=== PATIENT | female | born 2000 | race Caucasian/White ===

== ENCOUNTER 2023-10-21 22:33 | Emergency (ER) | payer OTHER, SELFPAY ==
[2023-10-21 22:35] VITALS: BP 130/85; PULSE 97; RESP 14; TEMP 36.7; O2SAT 98
--- NOTE | 2023-10-21 23:10 | ECG_ITS ---
[facility] Test Date: 2023-10-22 Pat Name: Rosendo Robbins Department: Room: Gender: Female Non Morse Intercept Technician: : 2000 Requested By: Sampson Cagle Order Number: [id number] Adrian MD: Torsten Monterroso M.D. Measurements Intervals [place] Rate: 87 P: 64 VA: 152 QRS: 64 QRSD: 97 T: 40 QT: 344 QTc: 415 Interpretive Statements SINUS RHYTHM POSSIBLE RIGHT VENTRICULAR CONDUCTION DELAY [RSR (QR) IN V1/V2] No previous ECG available for comparison Electronically Signed On 10-22-2023 17:00:03 CDT by Torsten Monterroso M.D. [email or web address]
--- NOTE | 2023-10-21 23:10 | XRR_ITS ---
PROCEDURE INFORMATION: Exam: XR Chest Exam date and time: 10/21/2023 11:18 PM Age: 23 years old Clinical indication: Dyspnea; Patient HX: Patient says she didn't injure her wrist but says she feels like its the veins that hurt ; Additional info: SOB TECHNIQUE: Imaging protocol: Radiologic exam of the chest. Views: 2 views. COMPARISON: CR XR cervical spine 4-5V [id number] 12/16/2017 4:13 PM FINDINGS: Lungs: Unremarkable. No consolidation. Pleural spaces: Unremarkable. No pleural effusion. No pneumothorax. Heart/Mediastinum: Unremarkable. No cardiomegaly. Bones/joints: Unremarkable. XR/XR chest 2V* [id number] IMPRESSION: No acute findings.
--- NOTE | 2023-10-21 23:10 | XRR_ITS ---
PROCEDURE INFORMATION: Exam: XR Left Wrist Exam date and time: 10/21/2023 11:15 PM Age: 23 years old Clinical indication: Pain; Left; Patient HX: Patient says she didn't injure her wrist but says she feels like its the veins that hurt ; Additional info: Left wrist pain TECHNIQUE: Imaging protocol: Radiologic exam of the left wrist. Views: 3 or more views. COMPARISON: No relevant prior studies available. FINDINGS: Bones/joints: Normal. Soft tissues: Normal. XR/XR wrist LT min 3V* [id number] IMPRESSION: No acute findings.
--- NOTE | 2023-10-21 23:19 | ED_ITS ---
Documented by User: JULIA Damico 10/22/23 00:20 HPI - Extremity Problem 2 General: Chief complaint: Extremity Problem,Nontraumatic Stated complaint: left arm pain Time Seen by Provider: 10/21/23 22:37 Source: patient Mode of arrival: ambulatory Limitations: no limitations History of Present Illness: Patient is a 23-year-old female who presents to the emergency department complaining of left wrist pain onset tonight. Patient also complaining of some shortness of breath over the past 2 days, and parent in the room states that her heart rate has been running high. Patient has had the pain in her left wrist and arm before, as sometimes it will start randomly and be followed by some purple discoloration in her distal left hand. 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 She states she has a history of anxiety, but has never taken any medications. She is concerned that she had a heart attack due to her family history of atrial fibrillation, and states she started to panic over this. Patient denies any recent trauma to her left upper extremity. She states she had a history of central sleep apnea when she was little and underwent several MRIs, but never had this followed up. Patient denies any chest pain, fevers, or any other symptoms at this time. Associated symptoms: Deny chest pain, fever(s) or rash Review of Systems 2 General: Reports: 10 or more systems reviewed and unremarkable except in HPI and below Const: Denies: fever(s), chills or fatigue Eyes: Denies: change in vision ENMT: Denies: throat pain, ear or mastoid pain or nasal discharge Card: Reports: palpitations; Denies: chest pain, swelling of feet/ankles or lightheadedness Resp: Reports: dyspnea; Denies: productive cough or wheezing GI: Denies: abdominal pain, nausea, vomiting, diarrhea or constipation : Denies: flank pain, difficulty voiding, dysuria or urinary frequency Musc: Reports: joint pain (Left wrist); Denies: neck pain, back pain, joint swelling or joint redness Skin/Breast: Reports: changes in skin color (Left hand); Denies: rash Neuro: Denies: headache(s), numbness in extremities or weakness in extremities Psych: Reports: anxiety Physical Exam 2 Const: COMMON NORMALS: no acute distress and no limitations GENERAL APPEARANCE: cooperative, well developed and anxious O RIENTATION/CONSCIOUSNESS: Yes awake, Yes oriented to person, Yes oriented to place and Yes oriented to time HENMT: COMMON NORMALS: normocephalic, atraumatic and hearing grossly normal bilaterally HEAD & SCALP: normocephalic and atraumatic Eye: COMMON NORMALS: Equal, round and reactive pupils present, EOMs intact bilaterally and conjunctivae normal CONJUNCTIVA: Yes conjunctivae normal P UPIL: Yes Equal, round and reactive pupils present Neck/C-Spine: COMMON NORMALS: full ROM, supple and no JVD Resp: COMMON NORMALS: normal respiratory effort, No retractions, No use of accessory muscles and clear to auscultation bilaterally AUSCULTATION: clear to auscultation bilaterally Cardio: COMMON NORMALS: no JVD, regular rate, regular rhythm, No clicks present (Cardio), No murmurs present (Cardio) and No rub (Cardio) RATE: r egular rate RHYTHM: regular rhythm Extremity: COMMON NORMALS: normal to inspection, full ROM, capillary refill normal, no joint enlargement and no clubbing, cyanosis or edema LEFT UPPER EXTREMITY: Yes wrist Left wrist: Yes inspection (Normal to inspection), Yes palpation (Nontender to palpation), Yes ROM (Full painless range of motion), Yes neurovascular exam (Intact) and Yes other (Skin color normal) Neuro: COMMON NORMALS: CN's II-XII intact bilaterally, moves all extremities, no focal motor deficits and no sensory deficits noted SENSORIUM/ORIENTATION: Yes oriented to person, Yes oriented to place and Yes oriented to time Psych: COMMON NORMALS: mental status grossly normal and Normal thought process present MOOD & AFFECT: Yes tearful THOUGHT PROCESS: Normal thought process present Skin: COMMON NORMALS: no rashes or lesions noted GENERAL SKIN EXAM: no rashes or lesions noted Course 2 Vital Signs: Vital signs: Vital Signs Temperature 98.0 F 10/22/23 00:19 Pulse Rate 97 10/22/23 00:19 Respiratory Rate 14 10/22/23 00:19 Blood Pressure 130/85 10/22/23 00:19 Pulse Oximetry 98 10/22/23 00:19 Oxygen Delivery Me thod Room Air 10/21/23 22:35 MDM - Extremity (Nontraumatic) Medical Decision Making This patient was seen and evaluated in the emergency department today for left wrist pain and shortness of breath. Patient and parents endorse the fact that it may be attributed to some anxiety, however patient has been concerned over family history of cardiac issues. Patient's vitals on arrival normal. On exam, patient is tearful and anxious appearing, with unremarkable wrist examination. Heart and lungs normal to auscultation. Special tests for carpal tunnel also negative. No injuries or trauma noted. I ordered a D-dimer to assess patient's concern of breathing difficulties as well as an elevated heart rate, which was negative. Chest x-ray obtained which also did not display any acute cardiopulmonary processes. CBC and CMP normal. EKG showed normal sinus rhythm with normal rate. Due to negative workup, and patient's clinical appearance, I believe the patient would benefit from following up with her primary care provider to discuss potential pharmacology for anxiety. I also informed the patient if she continues to have wrist issues, she can also follow-up for any further imaging. Patient and parents both agree with this plan and patient will be discharged home. Return precautions given. Lab Data 10/21/23 23:30 10/21/23 23:30 Radiology Impressions Chest X-Ray 10/21/23 23:10 IMPRESSION: No acute findings. Wrist X-Ray 10/21/23 23:10 IMPRESSION: No acute findings. Laboratory Results WBC 9.34 10^3/uL (3.29-11.43) 10/21/23 23: RBC 4.55 10^6/uL (3.85-5.65) 10/21/23: Hgb 12.50 g/dL (11.27-16.99) 10/21/23 23: Hct 38.3 % (36-47) 10/21/23 23:30 MCV 84.2 fl (85-98) L 10/21/23 23: MCH 27.5 pg (27-33) 10/21/23: MCHC 32.6 g/dL (30-55) 10/21/23 23: RDW 13.2 % (12.1-15.1) 10/21/23 23: Plt Count 358 10^3/cmm (157-399) 10/21/23 23: MPV 8.4 fL (7.4-10.4) 10/21/23 23:30 Neut % (Auto) 53.3 % 10/21/23 23:30 Lymph % (Auto) 35.5 % 10/21/23 23:30 [place] % (Auto) 9.4 % 10/21/23 23:30 Eos % (Auto) 1.2 % 10/21/23 23:30 Baso % (Auto) 0.5 % 10/21/23 23:30 Neut # (Auto) 4.97 10^3/uL (1.8-7.7) 10/21/23 23:30 Lymph # (Auto) 3.3 10^3/uL (0.8-4.8) 10/21/23 23:30 [place] # (Auto) 0.9 10^3/uL (0.2-0.9) 10/21/23 23:30 Eos # (Auto) 0.1 10^3/uL (0.0-0.8) 10/21/23 23: Baso # (Auto) 0.1 10^3/uL (0.0-0.1) 10/21/23 23:30 Nucleated RBC % (auto) 0 % 10/21/23 23: Nucleated RBCs # 0.0 /100WBC 10/21/23 23:30 D-Dimer <= 0.27 ug/mLFEU (0-0.59) 10/21/23 23:30 Sodium 138 mmol/L (136-145) 10/21/23 23:30 Potassium 3.7 mmol/L (3.5-5.1) 10/21/23 23: Chloride 103 mmol/L (98-107) 10/21/23 23:30 Carbon Dioxide 25 mmol/L (22-29) 10/21/23 23:30 Anion Gap 13.7 (5-19) 10/21/23 23:30 BUN 15 mg/dL (6-20) 10/21/23 23:30 Creatinine 0.7 mg/dL (0.5-0.9) 10/21/23 23:30 GFR Calculation 105.6 mL/min (90-130) 10/21/23 23:30 Glucose 78 mg/dL (65-115) 10/21/23 23:30 Calculated Osmolality 286 mOsm/kg (285-295) 10/21/23 23:30 Calcium 9.3 mg/dL (8.5-10.5) 10/21/23 23:30 Total Bilirubin 0.2 mg/dL (0.15-1.2) 10/21/23 23:30 AST 17 U/L (0-32) 10/21/23 23:30 ALT 17 U/L (0-33) 10/21/23 23:30 Alkaline Phosphatase 77 U/L (35-105) 10/21/23 23:30 Total Protein 7.7 g/dL (6.6-8.7) 10/21/23 23:30 Albumin 4.2 g/dL (3.5-5.2) 10/21/23 23:30 Globulin 3.5 g/dL (1.3-4.6) 10/21/23 23:30 All radiology interpretation(s) finalized by discharge Discharge Plan Discharge Patient Disposition: Home Clinical Impression: Anxiety Muscle strain of left wrist Qualifiers: Encounter type: initial encounter Qualified Code(s): S66.912A - Strain of unspecified muscle, fascia and tendon at wrist and hand level, left hand, initial encounter Condition: Stable Prescriptions: No Action amoxicillin-pot clavulanate 875-125 mg tablet 1 tab PO BID 7 Days Qty: 14 0RF Discharge Orders: Discharge ED (Routine); Ordered 10/22/23 Ordered By: Sampson Tse Referrals: Cj Caba MD [Primary Care Provider] - Discharge Diet: Usual diet Discharge Activity: Resume usual activity Patient Instructions: Wrist Sprain (ED) Activity Restrictions/Additional Instructions: Follow-up with your primary care provider as discussed. Return with any new or concerning symptoms. Coding Level of Care Code ED Prosthetic Technician for Chg Fwd Documented by User: Ariel Juarez DO 10/22/23 06:04 HPI - Extremity Problem 2 General: Chief complaint: Extremity Problem,Nontraumatic Stated complaint: left arm pain Time Seen by Provider: 10/21/23 22:37 Course 2 Vital Signs: Vital signs: Vital Signs Temperature 98.0 F 10/22/23 00:19 Pulse Rate 97 10/22/23 00:19 Respiratory Rate 14 10/22/23 00:19 Blood Pressure 130/85 10/22/23 00:19 Pulse Oximetry 98 10/22/23 00:19 Oxygen Delivery Me thod Room Air 10/21/23 22:35 MDM - Extremity (Nontraumatic) Medical Decision Making This patient was seen and evaluated in the emergency department today for left wrist pain and shortness of breath. Patient and parents endorse the fact that it may be attributed to some anxiety, however patient has been concerned over family history of cardiac issues. Patient's vitals on arrival normal. On exam, patient is tearful and anxious appearing, with unremarkable wrist examination. Heart and lungs normal to auscultation. Special tests for carpal tunnel also negative. No injuries or trauma noted. I ordered a D-dimer to assess patient's concern of breathing difficulties as well as an elevated heart rate, which was negative. Chest x-ray obtained which also did not display any acute cardiopulmonary processes. CBC and CMP normal. EKG showed normal sinus rhythm with normal rate. Due to negative workup, and patient's clinical appearance, I believe the patient would benefit from following up with her primary care provider to discuss potential pharmacology for anxiety. I also informed the patient if she continues to have wrist issues, she can also follow-up for any further imaging. Patient and parents both agree with this plan and patient will be discharged home. Return precautions given. Chart reviewed Lab Data 10/21/23 23:30 10/21/23 23:30 Radiology Impressions Chest X-Ray 10/21/23 23:10 IMPRESSION: No acute findings. Wrist X-Ray 10/21/23 23:10 IMPRESSION: No acute findings. Laboratory Results WBC 9.34 10^3/uL (3.29-11.43) 10/21/23 23:30 RBC 4.55 10^6/uL (3.85-5.65) 10/21/23 23:30 Hgb 12.50 g/dL (11.27-16.99) 10/21/23 23:30 Hct 38.3 % (36-47) 10/21/23 23:30 MCV 84.2 fl (85-98) L 10/21/23 23: MCH 27.5 pg (27-33) 10/21/23 23: MCHC 32.6 g/dL (30-55) 10/21/23: RDW 13.2 % (12.1-15.1) 10/21/23: Plt Count 358 10^3/cmm (157-399) 10/21/23: MPV 8.4 fL (7.4-10.4) 10/21/23 23: Neut % (Auto) 53.3 % 10/21/23 23: Lymph % (Auto) 35.5 % 10/21/23 23: [place] % (Auto) 9.4 % 10/21/23: Eos % (Auto) 1.2 % 10/21/23: Baso % (Auto) 0.5 % 10/21/23: Neut # (Auto) 4.97 10^3/uL (1.8-7.7) 10/21/23: Lymph # (Auto) 3.3 10^3/uL (0.8-4.8) 10/21/23: [place] # (Auto) 0.9 10^3/uL (0.2-0.9) 10/21/23: Eos # (Auto) 0.1 10^3/uL (0.0-0.8) 10/21/23: Baso # (Auto) 0.1 10^3/uL (0.0-0.1) 10/21/23: Nucleated RBC % (auto) 0 % 10/21/23: Nucleated RBCs # 0.0 /100WBC 10/21/23: D-Dimer <= 0.27 ug/mLFEU (0-0.59) 10/21/23 23: Sodium 138 mmol/L (136-145) 10/21/23 23: Potassium 3.7 mmol/L (3.5-5.1) 10/21/23: Chloride 103 mmol/L (98-107) 10/21/23: Carbon Dioxide 25 mmol/L (22-29) 03/19/24 23:30 Anion Gap 13.7 (5-19) 10/21/23 23:30 BUN 15 mg/dL (6-20) 10/21/23 23:30 Creatinine 0.7 mg/dL (0.5-0.9) 10/21/23 23:30 GFR Calculation 105.6 mL/min (90-130) 10/21/23 23:30 Glucose 78 mg/dL (65-115) 10/21/23 23:30 Calculated Osmolality 286 mOsm/kg (285-295) 10/21/23 23:30 Calcium 9.3 mg/dL (8.5-10.5) 10/21/23 23:30 Total Bilirubin 0.2 mg/dL (0.15-1.2) 10/21/23 23:30 AST 17 U/L (0-32) 10/21/23 23:30 ALT 17 U/L (0-33) 10/21/23 23:30 Alkaline Phosphatase 77 U/L (35-105) 10/21/23 23:30 Total Protein 7.7 g/dL (6.6-8.7) 10/21/23 23:30 Albumin 4.2 g/dL (3.5-5.2) 10/21/23 23:30 Globulin 3.5 g/dL (1.3-4.6) 10/21/23 23:30 Discharge Plan Discharge Patient Disposition: Home Clinical Impression: Anxiety Muscle strain of left wrist Qualifiers: Encounter type: initial encounter Qualified Code(s): S66.912A - Strain of unspecified muscle, fascia and tendon at wrist and hand level, left hand, initial encounter Condition: Stable Prescriptions: No Action amoxicillin-pot clavulanate 875-125 mg tablet 1 tab PO BID 7 Days Qty: 14 0RF Discharge Orders: Discharge ED (Routine); Ordered 10/22/23 Ordered By: Sampson Tse Referrals: Cj Caba MD [Primary Care Provider] - Discharge Diet: Usual diet Discharge Activity: Resume usual activity Patient Instructions: Wrist Sprain (ED) Activity Restrictions/Additional Instructions: Follow-up with your primary care provider as discussed. Return with any new or concerning symptoms. Coding Level of Care Code ED Prosthetic Technician for Edu Keyes
[2023-10-21 23:36] LABS: Basophils # 0.1 10^3/uL (0.0-0.1); Basophils % 0.5 %; Eosinophils # 0.1 10^3/uL (0.0-0.8); Eosinophils % 1.2 %; Hematocrit 38.3 % (36-47); Lymphocytes # 3.3 10^3/uL (0.8-4.8); Lymphocytes % 35.5 %; Mean Corpuscular HGB Conc 32.6 g/dL (30-55); Mean Corpuscular Hemoglobin 27.5 pg (27-33); Mean Corpuscular Volume 84.2 fl (85-98); Mean Platelet Volume 8.4 fL (7.4-10.4); Monocytes # 0.9 10^3/uL (0.2-0.9); Monocytes % 9.4 %; Neutrophils # 4.97 10^3/uL (1.8-7.7); Neutrophils % 53.3 %; Nucleated Red Blood Cells % 0 %; Platelet Count 358 10^3/cmm (157-399); Red Blood Count 4.55 10^6/uL (3.85-5.65); Red Cell Distribution Width 13.2 % (12.1-15.1); White Blood Count 9.34 10^3/uL (3.29-11.43)
[2023-10-21 23:51] LABS: D Dimer <= 0.27 ug/mLFEU (0-0.59)
[2023-10-21 23:53] LABS: Alanine Aminotransferase 17 U/L (0-33); Albumin Level 4.2 g/dL (3.5-5.2); Alkaline Phosphatase 77 U/L (35-105); Anion Gap 13.7 (5-19); Aspartate Amino Transferase 17 U/L (0-32); Blood Urea Nitrogen 15 mg/dL (6-20); Calcium 9.3 mg/dL (8.5-10.5); Carbon Dioxide 25 mmol/L (22-29); Chloride 103 mmol/L (98-107); Creatinine Clr Calc Pharmacy 111.3075; Globulin 3.5 g/dL (1.3-4.6); Glomerular Filtration Rate 105.6 mL/min (90-130); Glucose 78 mg/dL (65-115); Osmolality Calculated 286 mOsm/kg (285-295); Potassium 3.7 mmol/L (3.5-5.1); Sodium 138 mmol/L (136-145); Total Bilirubin 0.2 mg/dL (0.15-1.2); Total Protein 7.7 g/dL (6.6-8.7)
[2023-10-22 00:19] VITALS: BP 130/85; PULSE 97; RESP 14; TEMP 36.7; O2SAT 98
== END 2023-10-22 00:20 | disposition home or self-care (01) ==
PROVIDERS: Emergency Provider Physician Assistant; Family Provider Family Medicine; PCP Family Medicine
DX: F41.9 Anxiety disorder, unspecified (principal); S66.912A Strain of unspecified muscle, fascia and tendon at wrist and hand level, left hand, initial encounter; X58.XXXA Exposure to other specified factors, initial encounter
CPT/HCPCS: 36415; 71046; 73110; 80053; 85025; 85378; 93005; 99285

== ENCOUNTER → 2024-05-17 15:35 | Outpatient (BNVA) | payer OTHER, SELFPAY | PROVIDERS: Family Provider Family Medicine; PCP Family Medicine | DX: J02.9 Acute pharyngitis, unspecified (principal) | CPT/HCPCS: 87880 ==

== ENCOUNTER → 2024-08-14 10:14 | Outpatient (BNVA) | payer OTHER, SELFPAY | PROVIDERS: Family Provider Family Medicine; PCP Family Medicine | DX: R05.9 Cough, unspecified (principal); R11.0 Nausea; K52.9 Noninfective gastroenteritis and colitis, unspecified | CPT/HCPCS: 87400; 87426 ==

== ENCOUNTER 2025-01-13 10:20 | Emergency (ER) | payer OTHER, SELFPAY ==
[2025-01-13 10:30] VITALS: BP 121/75; PULSE 115; RESP 18; TEMP 37.7; O2SAT 99; BMI 25.6
--- NOTE | 2025-01-13 11:16 | W.ED.NECK ---
HPI - Neck Pain/Injury General: Chief Complaint: Neck Pain/Injury Stated Complaint: head and neck injury Time Seen by Provider: 01/13/25 11:08 History of Present Illness: 24-year-old female who presents to the emergency room with neck pain. She says this started after she was doing a dance move. She is a dancer or choreographer. Said she has had worsening neck pain. Starts at the base of her skull and goes down her neck and into her shoulders. She also thinks she may have been having fevers. Related Data Previous Rx's ?Medication ?Instructions ?Recorded ondansetron 4 mg disintegrating 4 mg PO Q6H PRN nausea and 08/14/24 tablet vomiting #12 tabs cefdinir 300 mg capsule 300 mg PO BID 5 days #10 caps 01/13/25 cyclobenzaprine 10 mg tablet 10 mg PO Q8H PRN muscle spasm #20 01/13/25 tabs dexamethasone 6 mg tablet 6 mg PO DAILY 5 days #5 tabs 01/13/25 diclofenac sodium 50 mg 50 mg PO BID PRN pain #14 tabs 01/13/25 tablet,delayed release Allergies Allergy/AdvReac Type Severity Reaction Status Date / Time No Known Allergies Allergy Verified 08/14/24 10:06 [facility] ED PFSH: Social History Smoking and tobacco/nicotine status: never used tobacco/nicotine Physical Exam Narrative: EXAM NARRATIVE: General: Alert, no acute distress. Skin: Warm, dry. Head: Normocephalic, atraumatic. Neck: Supple, trachea midline. Patient moves head in all directions with no nuchal rigidity. She does complain of pain with movement. Eye: Extraocular movements are intact. Ears, nose, mouth and throat: mucosa moist. Cardiovascular: Regular, Normal peripheral perfusion. Respiratory: Lungs are clear to auscultation, respirations are non-labored, breath sounds are equal, Symmetrical chest wall expansion. Gastrointestinal: Soft, Nontender, Non distended Musculoskeletal: Normal ROM, no deformity. Neurological: Alert and oriented, No focal neurological deficit observed. Psychiatric: Cooperative, appropriate mood & affect. Course Vital Signs: Vital signs: Vital Signs Temperature 99.9 F H 01/13/25 10:30 Pulse Rate 115 H 01/13/25 10:30 Respiratory Rate 18 01/13/25 10:30 Blood Pressure 121/75 01/13/25 10:30 Pulse Oximetry 99 01/13/25 10:30 Oxygen Delivery Me thod Room Air 01/13/25 10:30 MDM - Neck Pain/Injury Medical Decision Making Medical decision making: Differential diagnosis including but not limited to and based on the above HPI, review of systems and physical exam: In this patient with neck pain after a dance move concern for cervical strain. Cervical fracture. Meningitis versus viral meningitis. Viral illness. Orders placed to evaluate differential diagnosis based on the above differential, HPI and physical exam CT head: No acute intracranial process. no intracranial hemorrhage, no evidence of infarct. no evidence of acute fracture.This was reviewed and interpreted by myself the ER physician. CT of the cervical spine: No fracture. Good alignment. No step-offs. This was reviewed and interpreted by myself the emergency room physician. I also reviewed the radiologist report. Lab Review: Laboratory results were reviewed and interpreted by myself the emergency room physician. No leukocytosis. No anemia. No renal failure. CRP is a bit elevated at 66. I reviewed the patient's medical record. Reexamination: Patient remained stable. No increased work of breathing. No altered mental status. No focal motor deficits. Assessment and plan: Cervical strain Viral illness ? IV Rocephin, IV Decadron, IV Norflex, IV Toradol. - Discharged home - Discussed plan with patient. Answered any questions. - Evaluation and treatment of this problem were appropriate in the emergency setting. Lab Data 01/13/25 11:22 01/13/25 11:22 Radiology Impressions Cervical Spine CT 01/13/25 11:17 IMPRESSION: No acute cervical spine fracture. Head CT 01/13/25 11:17 IMPRESSION: No acute intracranial abnormality. Laboratory Results WBC 8.65 10^3/uL (3.29-11.43) 01/13/25 11:22 RBC 4.49 10^6/uL (3.85-5.65) 01/13/25 11:22 Hgb 12.30 g/dL (11.27-16.99) 01/13/25 11:22 Hct 38.8 % (36-47) 01/13/25 11:22 MCV 86.4 fl (85-98) 01/13/25 11:22 MCH 27.4 pg (27-33) 01/13/25 11:22 MCHC 31.7 g/dL (30-55) 01/13/25 11:22 RDW 13.6 % (12.1-15.1) 01/13/25 11:22 Plt Count 279 10^3/cmm (157-399) 01/13/25 11:22 MPV 8.3 fL (7.4-10.4) 01/13/25 11:22 Neut % (Auto) 70.2 % 01/13/25 11:22 Lymph % (Auto) 13.8 % 01/13/25 11:22 [place] % (Auto) 14.8 % 01/13/25 11:22 Eos % (Auto) 0.7 % 01/13/25 11:22 Baso % (Auto) 0.3 % 01/13/25 11:22 Neut # (Auto) 6.07 10^3/uL (1.8-7.7) 01/13/25 11:22 Lymph # (Auto) 1.2 10^3/uL (0.8-4.8) 01/13/25 11:22 [place] # (Auto) 1.3 10^3/uL (0.2-0.9) H 01/13/25 11:22 Eos # (Auto) 0.1 10^3/uL (0.0-0.8) 01/13/25 11:22 Baso # (Auto) 0.0 10^3/uL (0.0-0.1) 01/13/25 11:22 Nucleated RBC % (auto) 0 % 01/13/25 11:22 Nucleated RBCs # 0.0 /100WBC 01/13/25 11:22 Sodium 136 mmol/L (136-145) 01/13/25 11:22 Potassium 4.1 mmol/L (3.5-5.1) 01/13/25 11:22 Chloride 102 mmol/L (98-107) 01/13/25 11:22 Carbon Dioxide 22 mmol/L (22-29) 01/13/25 11:22 Anion Gap 16.1 (5-19) 01/13/25 11:22 BUN 8 mg/dL (6-20) 01/13/25 11:22 Creatinine 0.7 mg/dL (0.5-0.9) 01/13/25 11:22 GFR Calculation 104.6 mL/min (90-130) 01/13/25 11:22 Glucose 86 mg/dL (65-115) 01/13/25 11:22 Calculated Osmolality 280 mOsm/kg (285-295) L 01/13/25 11:22 Lactic Acid 1.0 mmol/L (0.5-2.2) 01/13/25 11:22 Calcium 8.8 mg/dL (8.5-10.5) 01/13/25 11:22 Total Bilirubin 0.3 mg/dL (0.15-1.2) 01/13/25 11:22 AST 24 U/L (0-32) 01/13/25 11:22 ALT 33 U/L (0-33) 01/13/25 11:22 Alkaline Phosphatase 81 U/L (35-105) 01/13/25 11:22 C-Reactive Protein 66.1 mg/L (0.0-4.9) H 01/13/25 11:22 Total Protein 7.7 g/dL (6.6-8.7) 01/13/25 11:22 Albumin 4.1 g/dL (3.5-5.2) 01/13/25 11:22 Globulin 3.6 g/dL (1.3-4.6) 01/13/25 11:22 HCG, Qual Negative (Negative) 01/13/25 11:22 All radiology interpretation(s) finalized by discharge Discharge Plan Discharge Patient Disposition: Home Clinical Impression: Cervical strain, Viral illness Condition: Stable Prescriptions: New cyclobenzaprine 10 mg tablet 10 mg PO Q8H PRN (Reason: muscle spasm) Qty: 20 0RF dexamethasone 6 mg tablet 6 mg PO DAILY 5 Days Qty: 5 0RF diclofenac sodium 50 mg tablet,delayed release (DR/EC) 50 mg PO BID PRN (Reason: pain) Qty: 14 0RF cefdinir 300 mg capsule 300 mg PO BID 5 Days Qty: 10 0RF No Action ondansetron 4 mg tablet,disintegrating 4 mg PO Q6H PRN (Reason: nausea and vomiting) Qty: 12 0RF Rx Instructions: 340b please Discharge Orders: Discharge ED (Routine); Ordered 01/13/25 Ordered By: Tamela L Nicholas Referrals: Cj Caba MD [Primary Care Provider, Family Practice] Discharge Diet: Usual diet Discharge Activity: Increase activity as tolerated Patient Instructions: Cervical Strain (ED), Opioid Safety, Pain Management Activity Restrictions/Additional Instructions: Thank you for choosing [facility] for your healthcare needs today. You have been screened and evaluated and felt safe for discharge. Health conditions do change or evolve sometimes and as such it is important that you follow up with your Primary Doctor to be re checked, 3-5 days is a general good time frame for follow up. You are always welcome to return to the ED for re assessment if your symptoms are worsening or you have new concerns Print Language: Maltese Coding Level of Care Code ED Teacher'S Aide for Edu Keyes
--- NOTE | 2025-01-13 11:17 | CTR_ITS ---
PROCEDURE INFORMATION: Exam: CT Head Without Contrast Exam date and time: 01/13/2025 11:43 AM Age: 24 years old Clinical indication: Injury or trauma; Fall; Blunt trauma (contusions or hematomas); Without loss of consciousness; Additional info: Head pain TECHNIQUE: Imaging protocol: Computed tomography of the head without contrast. Radiation optimization: All CT scans at this facility use at least one of these dose optimization techniques: automated exposure control; mA and/or kV adjustment per patient size (includes targeted exams where dose is matched to clinical indication); or iterative reconstruction. COMPARISON: CT cervical spin wo con* [id number] 01/13/2025 11:43 AM RADIATION DOSE METRICS: Total DLP (mGy-cm): 848 FINDINGS: Brain: There is no evidence of acute parenchymal hemorrhage, extra-axial collection, or acute infarction. There is no mass effect, midline shift, or downward herniation. Cerebral ventricles: No ventriculomegaly. Paranasal sinuses: There is mild ethmoid sinus mucosal thickening/opacification. Mastoid air cells: Visualized mastoid air cells are well aerated. Bones: Unremarkable. No acute fracture. Soft tissues: Unremarkable. CT/CT head wo con* [id number] IMPRESSION: No acute intracranial abnormality.
--- NOTE | 2025-01-13 11:17 | CTR_ITS ---
PROCEDURE INFORMATION: Exam: CT Cervical Spine Without Contrast Exam date and time: 01/13/2025 11:43 AM Age: 24 years old Clinical indication: Injury or trauma; Fall; Blunt trauma; Additional info: Neck pain TECHNIQUE: Imaging protocol: Computed tomography of the cervical spine without contrast. Radiation optimization: All CT scans at this facility use at least one of these dose optimization techniques: automated exposure control; mA and/or kV adjustment per patient size (includes targeted exams where dose is matched to clinical indication); or iterative reconstruction. COMPARISON: CR XR chest 2V* [id number] 10/21/2023 11:18 PM RADIATION DOSE METRICS: Total DLP (mGy-cm): 150.8 FINDINGS: Bones/joints: No acute fracture. Normal alignment. There is straightening of cervical lordosis. There is minimal multilevel spondylosis. C2-C3: No significant disc bulge or herniation. No severe spinal canal stenosis. No significant neural foraminal narrowing. C3-C4: No significant disc bulge or herniation. No severe spinal canal stenosis. No significant neural foraminal narrowing. C4-C5: No significant disc bulge or herniation. No severe spinal canal stenosis. No significant neural foraminal narrowing. C5-C6: No significant disc bulge or herniation. No severe spinal canal stenosis. No significant neural foraminal narrowing. C6-C7: No significant disc bulge or herniation. No severe spinal canal stenosis. No significant neural foraminal narrowing. C7-T1: No significant disc bulge or herniation. No severe spinal canal stenosis. No significant neural foraminal narrowing. Lungs: Lung apices are normal. Soft tissues: Unremarkable. CT/CT cervical spin wo con* [id number] IMPRESSION: No acute cervical spine fracture.
[2025-01-13 11:39] LABS: Basophils % 0.3 %; Eosinophils # 0.1 10^3/uL (0.0-0.8); Eosinophils % 0.7 %; Hematocrit 38.8 % (36-47); Lymphocytes # 1.2 10^3/uL (0.8-4.8); Lymphocytes % 13.8 %; Mean Corpuscular HGB Conc 31.7 g/dL (30-55); Mean Corpuscular Hemoglobin 27.4 pg (27-33); Mean Corpuscular Volume 86.4 fl (85-98); Mean Platelet Volume 8.3 fL (7.4-10.4); Monocytes # 1.3 10^3/uL (0.2-0.9); Monocytes % 14.8 %; Neutrophils # 6.07 10^3/uL (1.8-7.7); Neutrophils % 70.2 %; Nucleated Red Blood Cells % 0 %; Platelet Count 279 10^3/cmm (157-399); Red Blood Count 4.49 10^6/uL (3.85-5.65); Red Cell Distribution Width 13.6 % (12.1-15.1); White Blood Count 8.65 10^3/uL (3.29-11.43)
[2025-01-13 11:55] LABS: HCG, Serum Qual Negative (Negative)
[2025-01-13 12:02] LABS: Albumin Level 4.1 g/dL (3.5-5.2); Alkaline Phosphatase 81 U/L (35-105); Anion Gap 16.1 (5-19); Aspartate Amino Transferase 24 U/L (0-32); Blood Urea Nitrogen 8 mg/dL (6-20); C Reactive Protein 66.1 mg/L (0.0-4.9); Calcium 8.8 mg/dL (8.5-10.5); Carbon Dioxide 22 mmol/L (22-29); Chloride 102 mmol/L (98-107); Creatinine Clr Calc Pharmacy 110.3722; Globulin 3.6 g/dL (1.3-4.6); Glomerular Filtration Rate 104.6 mL/min (90-130); Glucose 86 mg/dL (65-115); Osmolality Calculated 280 mOsm/kg (285-295); Potassium 4.1 mmol/L (3.5-5.1); Sodium 136 mmol/L (136-145); Total Bilirubin 0.3 mg/dL (0.15-1.2); Total Protein 7.7 g/dL (6.6-8.7)
[2025-01-13 12:12] LABS: Alanine Aminotransferase 33 U/L (0-33)
[2025-01-13] MEDS: dexamethasone 10 mg/mL INJ IVP (12:18)
[2025-01-13] MEDS: ketorolac 30 mg/mL INJ IVP (12:18)
--- NOTE | 2025-01-13 12:20 | PC.PHAR ---
Pt states she takes Ibuprofen or Tylenol for pain.
[2025-01-13] MEDS: cefTRIAXone 1,000 mg SDV 1000 MG IVP (13:03)
[2025-01-13] MEDS: orphenadrine 30 mg/mL Inj 2 mL 60 MG IVP (13:03)
== END 2025-01-13 13:45 | disposition home or self-care (01) ==
PROVIDERS: Family Medicine; Emergency Provider Emergency Medicine; PCP Family Medicine
DX: S16.1XXA Strain of muscle, fascia and tendon at neck level, initial encounter (principal); B34.9 Viral infection, unspecified; X58.XXXA Exposure to other specified factors, initial encounter
CPT/HCPCS: 36415; 70450; 72125; 80053; 83605; 84703; 85025; 86140; 87040; 96374; 96375; 99285; J0696; J1100; J1885; J2360